=== PATIENT | male | born 1970 | race Hispanic/Latino ===

== ENCOUNTER → 2018-12-24 | Day surgery (SDC) | payer BC ==
[~2018-12-24] MED LIST: ALEVE220 M1 PO; FENTANYL CITRATE/PF 100MCG/2 ML INJ ONE; MIDAZOLAM HCL 2 MG/2 ML VIAL ONE; PROPOFOL IV EMULSION 10 MG/ML 50 ML VIAL ONE; TYLENOL PO
[2018-12-24 11:20] VITALS: BP 114/89
--- NOTE | 2018-12-24 15:33 | Operative Report ---
DATE OF PROCEDURE: 12/24/2018 SURGEON: Geoffrey Levy MD PROCEDURE PERFORMED: Colonoscopy. PREOPERATIVE DIAGNOSIS: Colon cancer screening. POSTOPERATIVE DIAGNOSIS: Colon cancer screening. No colon polyps found. PREOPERATIVE MEDICATIONS: Consisted of IV sedation under MAC anesthesia. PROCEDURE IN DETAIL: Using an Olympus Geewa video colonoscope, it was inserted into the patient's rectum and advanced without difficulty to the level of the cecum. The colon was studied from that level back down to the rectum. No polypoid lesions, tumor, masses or inflammatory changes were encountered. The colonoscope was withdrawn from the patient's rectum and the procedure was ended. Geoffrey Levy MD SAF/MODL /[id number]
== END | disposition home or self-care (01) ==
LOC: OR 07:05
PROVIDERS: ATTEND Internal Medicine Gastroenterology
DX: Z12.11 Encounter for screening for malignant neoplasm of colon (principal); K21.0 Gastro-esophageal reflux disease with esophagitis; K44.9 Diaphragmatic hernia without obstruction or gangrene; M45.9 Ankylosing spondylitis of unspecified sites in spine; Z01.810 Encounter for preprocedural cardiovascular examination; Z79.82 Long term (current) use of aspirin
CPT/HCPCS: 45378; 93005; J2250; J2704; J3010

== ENCOUNTER → 2024-07-05 | Day surgery (SDC) | payer OTHER ==
[~2024-07-05] MED LIST changes: +HYOSCYAMINE SULFATE 0.5 MG/ML INJ ONE; +LIDOCAINE HCL 2% LOCAL INJ 5 ML SDV VIAL INJ ONE; +PROPOFOL IV EMULSION 10 MG/ML 20 ML VIAL ONE; -PROPOFOL IV EMULSION 10 MG/ML 50 ML VIAL ONE
[2024-07-05] MEDS: LACTATED RINGER'S 1,000 ML ONE (07:10)
[2024-07-05 09:41] VITALS: TEMP 97.7
[2024-07-05 10:10] VITALS: BP 113/82; PULSE 91; RESP 16; O2SAT 98
== END | disposition home or self-care (01) ==
LOC: OR 06:44
PROVIDERS: ATTEND Internal Medicine Gastroenterology
DX: Z12.11 Encounter for screening for malignant neoplasm of colon (principal); K64.8 Other hemorrhoids; K27.9 Peptic ulcer, site unspecified, unspecified as acute or chronic, without hemorrhage or perforation; E66.01 Morbid (severe) obesity due to excess calories; M54.2 Cervicalgia; M45.9 Ankylosing spondylitis of unspecified sites in spine; M10.9 Gout, unspecified; Z01.810 Encounter for preprocedural cardiovascular examination; Z79.1 Long term (current) use of non-steroidal anti-inflammatories (NSAID)
CPT/HCPCS: 45378; 93005; J1980; J2003; J2250; J2704; J3010; J7121